=== PATIENT | female | born 1990 ===

== ENCOUNTER 2018-05-10 20:54 | Emergency (ER) | payer MEDICAID, OTHER ==
--- NOTE | 2018-05-10 21:50 | C.PDOC ---
History Of Present Illness 27 year old female with a history of anxiety complains of feeling hot and anxious. Patient was just started on lexapro 3 days ago, she took her dose this morning and went about her day but later this evening began feeling hot. Patient states she feels like she has a fever, but when she checked her temperature it was normal and states she feels sweaty but is not sweating. Additionally patient reports feeling this "heat and burning top of head". The patient appears anxious, speaking quickly about her symptoms and further talking about how much stress she has been dealing with and starting new job on [employer]. 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 Patient states she has a lot going on and over the past few weeks was feeling multiple things including headache, upper abdominal and chest pain as well as back pain. The patient states she was evaluated by her PMD had bloodwork, chest xray and CT of abdomen with normal results. Patient was then referred to psychiatrist and started on Lexapro. Denies pain or SOB. Time Seen by Provider: 05/10/18 21:30 Chief Complaint (Nursing): Anxiety History Per: Patient History/Exam Limitations: no limitations Onset/Duration Of Symptoms: Days Current Symptoms Are (Timing): Still Present Suicide/Self Injury Attempted (Context): None Associated Symptoms: Anxiety Involuntary Hold By: None Recent travel outside of the [place]: No Past Medical History Reviewed: Historical Data, Nursing Documentation, Vital Signs Vital Signs: Last Vital Signs Temp 98.8 F 05/10/18 21:16 Pulse 99 H 05/10/18 21:16 Resp 20 05/10/18 21:16 BP 123/81 05/10/18 21:16 Pulse Ox 99 05/10/18 21:57 - Medical History PMH: Anxiety Surgical History: No Surg Hx Family History: States: Unknown Family Hx - Social History Hx Alcohol Use: No Hx Substance Use: No - Immunization History Hx Tetanus Toxoid Vaccination: No Hx Influenza Vaccination: No Hx Pneumococcal Vaccination: No Review Of Systems Constitutional: Positive for: Sweats, Other (Hot flashes) Eyes: Negative for: Redness ENT: Negative for: Ear Pain, Throat Pain Cardiovascular: Negative for: Chest Pain, Palpitations Respiratory: Negative for: Shortness of Breath Gastrointestinal: Negative for: Nausea, Vomiting, Abdominal Pain Genitourinary: Negative for: Dysuria Musculoskeletal: Negative for: Back Pain, Leg Pain Neurological: Negative for: Weakness, Numbness, Headache, Dizziness Psych: Positive for: Anxiety Physical Exam - Physical Exam Appears: Non-toxic, Other (Anxious) Skin: Normal Color, Warm, Dry Head: Atraumatic, Normacephalic Eye(s): bilateral: Normal Inspection, PERRL, EOMI Nose: Normal Oral Mucosa: Moist Throat: Normal, No Erythema, No Exudate Neck: Normal, Supple Chest: Symmetrical, No Tenderness Cardiovascular: Rhythm Regular Respiratory: Normal Breath Sounds, No Rales, No Rhonchi, No Wheezing Gastrointestinal/Abdominal: Soft, No Tenderness Extremity: Bilateral: Atraumatic, Normal Color And Temperature, Normal ROM Neurological/Psych: Oriented x3, Normal Speech ED Course And Treatment O2 Sat by Pulse Oximetry: 99 (Room air) Pulse Ox Interpretation: Normal Medical Decision Making Medical Decision Making: Tylenol administered for subjective fever, at patient's request. O2 given via nasal cannula. I listened to patient at bedside and tried to provide comfort, offer anxiolytic but she declined. The patient has stable vital signs. 2244 The patient still feels the same and does not want to leave, she reports feeling better and safe in the ER. I spoke with Dr Brock who evaluated patient at bedside. The patient will now take xanax PO. Disposition Counseled Patient/Family Regarding: Diagnosis, Need For Followup, Rx Given - Disposition [facility]errals: [facility] [Outside] Disposition: HOME/ ROUTINE Condition: STABLE Additional Instructions: Please contact your doctor regarding your medication and symptoms Instructions: Anxiety, Adult (DC) Forms: [employer] (Yoruba) - POA Present On Arrival: None - Clinical Impression Clinical Impression: Mixed anxiety and depressive disorder - PA / [employer]PER[employer]ENDENT / Resident Statement MD/DO has reviewed & agrees with the documentation as recorded. - Scribe Statement The provider has reviewed the documentation as recorded by the Scriballyssa Correa All medical record entries made by the Amaniballyssa were at my direction and personally dictated by me. I have reviewed the chart and agree that the record accurately reflects my personal performance of the history, physical exam, medical decision making, and the department course for this patient. I have also personally directed, reviewed, and agree with the discharge instructions and disposition.
[2018-05-10 23:33] VITALS: BP 132/82; PULSE 76; RESP 16; TEMP 98.7; O2SAT 98
== END 2018-05-10 23:37 | disposition home or self-care (01) ==
LOC: C.ER 20:54
DX: F41.8 Other specified anxiety disorders (principal)